=== PATIENT | female | born 1975 | race American Indian/Alaskan Native ===

== ENCOUNTER 2019-03-01 13:52 | Inpatient (IN) | payer OTHER ==
--- NOTE | 2019-03-01 14:06 | Event Note ---
ED Screening Note Date of service: 03/01/19 Time: 14:03 ED Screening Note: 43 y/o female comes in for elevated blood pressure. History of ESRD, HTN, Gout and depression. Has a slight MASTERSON. This initial assessment/diagnostic orders/clinical plan/treatment(s) is/are subject to change based on patients health status, clinical progression and re- assessment by fellow clinical providers in the ED. Further treatment and workup at subsequent clinical providers discretion. Patient/guardian urged not to elope from the ED as their condition may be serious if not clinically assessed and managed. Initial orders include:
[2019-03-01 14:40] LABS: Basophils % (Auto) 0.7 % (0.0-1.8); Eosinophils # (Auto) 0.1 K/mm3 (0.0-0.4); Eosinophils % (Auto) 2.7 % (0.0-4.3); Hematocrit 34.2 % (30.3-42.9); Hemoglobin 11.8 gm/dl (10.1-14.3); Lymphocytes # (Auto) 1.6 K/mm3 (1.2-5.4); Lymphocytes % (Auto) 37.7 % (13.4-35.0); Mean Corpuscular HGB Conc 35 % (30-34); Mean Corpuscular Volume 91 fl (79-97); Monocytes # (Auto) 0.2 K/mm3 (0.0-0.8); Monocytes % (Auto) 5.9 % (0.0-7.3); Platelet Count 224 K/mm3 (140-440); Red Blood Count 3.78 M/mm3 (3.65-5.03); Red Cell Distribution Width 12.9 % (13.2-15.2)
[2019-03-01 14:42] LABS: Bilirubin,Urine NEG (Negative); Blood,Urine NEG (Negative); Color,Urine Straw (Yellow); Urobilinogen,Urine < 2.0 mg/dL (<2.0)
[2019-03-01 14:44] LABS: Protein,Urine >2000 mg dL mg/dL (Negative)
[2019-03-01 14:53] LABS: Calcium 8.9 mg/dL (8.4-10.2)
--- NOTE | 2019-03-01 15:47 | Emergency Department Report ---
ED General Adult HPI - General Chief complaint: High BP Stated complaint: HIGH BP Time Seen by Provider: 03/01/19 15:09 Source: patient Mode of arrival: Ambulatory Limitations: No Limitations - History of Present Illness Initial comments: Patient presents to the emergency department with a chief complaint of elevated blood pressure and headache. Patient states that her headache is diffuse in nature and describes it as throbbing. Not worst headache of life. Patient is currently on 3 antihypertensive medications and sees Dr. Pearson who is her nephr ologist for her hypertension. This is blood pressure arrival today was 245/150 and repeat blood pressure by me was 250/145. -: Gradual Location: head Radiation: non-radiation Severity scale (0 -10): 3 Quality: other (throbbing) Consistency: constant Improves with: none Worsens with: none Associated Symptoms: denies other symptoms Treatments Prior to Arrival: none - Related Data Home Medications Medication Instructions Recorded Confirmed Last Taken Allopurinol [Zyloprim] 100 mg PO QDAY 03/01/19 03/01/19 Unknown Atenolol [Tenormin] 50 mg PO DAILY 03/01/19 03/01/19 03/01/19 Colchicine 0.6 mg PO DAILY PRN 03/01/19 03/01/19 Unknown Doxazosin [Cardura] 4 mg PO BID 03/01/19 03/01/19 Unknown Ergocalciferol [Vitamin D2] 1 cap PO QWEEK 03/01/19 03/01/19 02/21/19 FLUoxetine HCL [FLUoxetine] 20 mg PO QDAY 03/01/19 03/01/19 Unknown Losartan [Cozaar] 100 mg PO QDAY 03/01/19 03/01/19 03/01/19 Allergies Allergy/AdvReac Type Severity Reaction Status Date / Time No Known Allergies Allergy Verified 03/01/19 13:59 ED Review of Systems ROS: Stated complaint: HIGH BP Other details as noted in HPI Comment: All other systems reviewed and negative Constitutional: denies: chills, fever Eyes: denies: eye pain, eye discharge, vision change ENT: denies: ear pain, throat pain Respiratory: denies: cough, shortness of breath, wheezing Cardiovascular: denies: chest pain, palpitations Endocrine: no symptoms reported Gastrointestinal: denies: abdominal pain, nausea, diarrhea Genitourinary: denies: urgency, dysuria, discharge Musculoskeletal: denies: back pain, joint swelling, arthralgia Skin: denies: rash, lesions Neurological: denies: headache, weakness, paresthesias Psychiatric: denies: anxiety, depression Hematological/Lymphatic: denies: easy bleeding, easy bruising ED Past Medical Hx - Past Medical History Previous Medical History?: Yes Hx Hypertension: Yes Hx Psychiatric Treatment: Yes (depression) Additional medical history: gout - Surgical History Additional Surgical History: hysterectomy - Social History Smoking Status: Never Smoker Substance Use Type: None - Medications Home Medications: Home Medications Medication Instructions Recorded Confirmed Last Taken Type Allopurinol [Zyloprim] 100 mg PO QDAY 03/01/19 03/01/19 Unknown History Atenolol [Tenormin] 50 mg PO DAILY 03/01/19 03/01/19 03/01/19 History Colchicine 0.6 mg PO DAILY PRN 03/01/19 03/01/19 Unknown History Doxazosin [Cardura] 4 mg PO BID 03/01/19 03/01/19 Unknown History Ergocalciferol [Vitamin D2] 1 cap PO QWEEK 03/01/19 03/01/19 02/21/19 History FLUoxetine HCL [FLUoxetine] 20 mg PO QDAY 03/01/19 03/01/19 Unknown History Losartan [Cozaar] 100 mg PO QDAY 03/01/19 03/01/19 03/01/19 History ED Physical Exam - General Limitations: No Limitations General appearance: alert, in no apparent distress - Head Head exam: Present: atraumatic, normocephalic - Eye Eye exam: Present: normal appearance, PERRL, EOMI - ENT ENT exam: Present: mucous membranes moist - Neck Neck exam: Present: normal inspection - Respiratory Respiratory exam: Present: normal lung sounds bilaterally. Absent: respiratory distress - Cardiovascular Cardiovascular Exam: Present: regular rate, normal rhythm. Absent: systolic murmur, diastolic murmur, rubs, gallop - GI/Abdominal GI/Abdominal exam: Present: soft, normal bowel sounds - Extremities Exam Extremities exam: Present: normal inspection - Back Exam Back exam: Present: normal inspection - Neurological Exam Neurological exam: Present: alert, oriented X3, CN II-XII intact. Absent: motor sensory deficit - Psychiatric Psychiatric exam: Present: normal affect, normal mood - Skin Skin exam: Present: warm, dry, intact, normal color. Absent: rash ED Course Vital Signs 03/01/19 03/01/19 03/01/19 14:02 15:56 16:02 Temperature 98.1 F 98.4 F Pulse Rate 65 55 L Respiratory 18 11 L 11 L Rate Blood Pressure 245/150 Blood Pressure 253/145 [Left] O2 Sat by Pulse 100 100 100 Oximetry ED Medical Decision Making - Lab Data Result diagrams: 03/01/19 14:17 03/01/19 14:17 Lab Results 03/01/19 03/01/19 03/01/19 Range/Units 14:15 14:17 14:17 WBC 4.2 L (4.5-11.0) K/mm3 RBC 3.78 (3.65-5.03) M/mm3 Hgb 11.8 (10.1-14.3) gm/dl Hct 34.2 (30.3-42.9) % MCV 91 (79-97) fl MCH 31 (28-32) pg MCHC 35 H (30-34) % RDW 12.9 L (13.2-15.2) % Plt Count 224 (140-440) K/mm3 Lymph % (Auto) 37.7 H (13.4-35.0) % [place] % (Auto) 5.9 (0.0-7.3) % Eos % (Auto) 2.7 (0.0-4.3) % Baso % (Auto) 0.7 (0.0-1.8) % Lymph # 1.6 (1.2-5.4) K/mm3 [place] # 0.2 (0.0-0.8) K/mm3 Eos # 0.1 (0.0-0.4) K/mm3 Baso # 0.0 (0.0-0.1) K/mm3 Seg Neutrophils % 53.0 (40.0-70.0) % Seg Neutrophils # 2.2 (1.8-7.7) K/mm3 Sodium 137 (137-145) mmol/L Potassium 4.3 (3.6-5.0) mmol/L Chloride 103.0 (98-107) mmol/L Carbon Dioxide 24 (22-30) mmol/L Anion Gap 14 mmol/L BUN 27 H (7-17) mg/dL Creatinine 3.3 H (0.7-1.2) mg/dL Estimated GFR 15 ml/min BUN/Creatinine Ratio 8 % Glucose 81 (65-100) mg/dL Calcium 8.9 (8.4-10.2) mg/dL Total Bilirubin 0.40 (0.1-1.2) mg/dL AST 18 (5-40) units/L ALT 11 (7-56) units/L Alkaline Phosphatase 58 (35-129) units/L Total Protein 7.5 (6.3-8.2) g/dL Albumin 4.0 (3.9-5) g/dL Albumin/Globulin Ratio 1.1 % Urine Color Straw (Yellow) Urine Turbidity Clear (Clear) Urine pH 7.0 (5.0-7.0) Ur Specific [place] 1.011 (1.003-1.030) Urine Protein >2000 mg dl (Negative) mg/dL Urine Glucose (UA) Neg (Negative) mg/dL Urine Ketones Neg (Negative) mg/dL Urine Blood Neg (Negative) Urine Nitrite Neg (Negative) Urine Bilirubin Neg (Negative) Urine Urobilinogen < 2.0 (<2.0) mg/dL Ur Leukocyte Esterase Neg (Negative) Urine WBC (Auto) 3.0 (0.0-6.0) /HPF Urine RBC (Auto) 3.0 (0.0-6.0) /HPF U Epithel Cells (Auto) 4.0 (0-13.0) /HPF - Radiology Data Radiology results: report reviewed - Medical Decision Making Placed on Cardene IV drip Critical Care Time: Yes Critical care time in (mins) excluding proc time.: 35 Critical care attestation.: If time is entered above; I have spent that time in minutes in the direct care of this critically ill patient, excluding procedure time. ED Disposition Clinical Impression: Hypertensive urgency Disposition: DC-09 OP ADMIT IP TO THIS HOSP Is pt being admited?: Yes Does the pt Need Aspirin: Yes Condition: Fair Time of Disposition: 17:22
[2019-03-01] MEDS ORDERED: CARDENE 50 MG in NACL 0.9% 250ML 230 ML IV SCH (16:00)
--- NOTE | 2019-03-01 16:26 | Cat Scan Report ---
CT HEAD WITHOUT CONTRAST INDICATION : headache. TECHNIQUE: Axial imaging performed from the skull apex through the skull base without the use of con trast. All CT scans at this location are performed using CT dose reduction for ALARA by means of aut omated exposure control. COMPARISON: None FINDINGS: Parenchyma: Normal. No abnormal density. Ventricles: Ventricles are normal in size and appear symmetric. Soft tissues: Soft tissues including the orbits appear normal. Bones: No acute osseous abnormality. Sinuses: Sinuses and mastoid air cells are clear. IMPRESSION: No acute abnormality. No evidence of acute infarct or hemorrhage. Signer Name: Vinny Ospina MD Signed: 03/01/2019 4:22 PM Workstation Name: [id number]
[2019-03-01] MEDS ORDERED: BABY ASPIRIN PO ONE (17:22)
--- NOTE | 2019-03-01 17:22 | History and Physical Report ---
History of Present Illness Chief complaint: My head hurts, and my blood pressure is high. History of present illness: 43 YO Female with HTN, Depression, Gout, and multiple life stressors presents to ED for evaluation. Pt states that she has experienced a severe headache over the past 2 days with persistent symptoms over the same time frame. Pt states that her pain ranges from 3-6/10, but is currently it a level of 3. Pt also reports having high blood pressure at home. Pt transported to [facility] via private vehicle. Pt seen and evaluated in ED and found to have Acute Kidney Injury as well as Hypertensive Emergency with blood pressure of 255/145. Pt denies fever, chills, CP, Palpitations, NVD, Trauma, BRBPR, Unintentional weight loss, night sweats, vision loss, or recent ill contacts. Pt admitted to [facility] and placed on cardene drip. No prior admission for review. All listed medication reconciled at time of admission. Past History Past Medical History: hypertension, other (gout,depression) Past Surgical History: hysterectomy Social history: single. denies: smoking, alcohol abuse, prescription drug abuse Family history: hypertension Medications and Allergies Allergies Allergy/AdvReac Type Severity Reaction Status Date / Time No Known Allergies Allergy Verified 03/01/19 13:59 Home Medications Medication Instructions Recorded Confirmed Last Taken Type Allopurinol [Zyloprim] 100 mg PO QDAY 03/01/19 03/01/19 Unknown History Atenolol [Tenormin] 50 mg PO DAILY 03/01/19 03/01/19 03/01/19 History Colchicine 0.6 mg PO DAILY PRN 03/01/19 03/01/19 Unknown History Doxazosin [Cardura] 4 mg PO BID 03/01/19 03/01/19 Unknown History Ergocalciferol [Vitamin D2] 1 cap PO QWEEK 03/01/19 03/01/19 02/21/19 History FLUoxetine HCL [FLUoxetine] 20 mg PO QDAY 03/01/19 03/01/19 Unknown History Losartan [Cozaar] 100 mg PO QDAY 03/01/19 03/01/19 03/01/19 History Active Meds: Active Medications Nicardipine HCl 50 mg/ Sodium (Chloride) 250 mls @ 25 mls/hr IV TITR VICKY; Protocol Last Titration: 03/01/19 17:18 Dose: 7.5 mg/hr, 37.5 mls/hr Documented by: Review of Systems Constitutional: no weight loss, no weight gain, no fever, no chills Ears, nose, mouth and throat: no ear pain, no ear discharge, no tinnitis, no nasal congestion, no nasal discharge, no sinus pressure Cardiovascular: no chest pain, no orthopnea, no palpitations, no edema, no syncope, no shortness of breath Respiratory: no cough, no cough with sputum, no excessive sputum, no hemoptysis, no shortness of breath Gastrointestinal: no abdominal pain, no nausea, no vomiting, no diarrhea Genitourinary Female: no pelvic pain, no flank pain, no menorrhagia, no dysuria Rectal: no pain, no bleeding Musculoskeletal: no neck pain, no shooting arm pain, no arm numbness/tingling, no low back pain, no shooting leg pain, no leg numbness/tingling Integumentary: no rash, no pruritis, no redness, no sores, no jaundice Neurological: no paralysis, no weakness, no parathesias, no numbness, no tingling, no seizures, no syncope, no tremors Psychiatric: no anxiety, no memory loss, no change in sleep habits, no change in libido, no suicidal ideation, no disorientation Endocrine: no cold intolerance, no heat intolerance, no excessive thirst, no polydipsia, no polyuria, no nocturia, no flushing Hematologic/Lymphatic: no easy bruising, no lymphedema Allergic/Immunologic: no urticaria, no allergic rhinitis, no anaphylaxis Exam - Constitutional Vitals: Temp Pulse Resp BP Pulse Ox 98.4 F 55 L 11 L 253/145 100 03/01/19 15:56 03/01/19 15:56 03/01/19 16:02 03/01/19 15:56 03/01/19 16:02 General appearance: Present: mild distress - EENT Eyes: Present: PERRL ENT: hearing intact, clear oral mucosa - Neck Neck: Present: supple, normal ROM - Respiratory Respiratory effort: normal Respiratory: bilateral: CTA - Cardiovascular Heart Sounds: Present: S1 & S2. Absent: rub, click - Extremities Extremities: pulses symmetrical, No edema Peripheral Pulses: within normal limits - Abdominal General gastrointestinal: Present: soft, non-tender, non-distended, normal bowel sounds Female genitourinary: Present: normal - Integumentary Integumentary: Present: clear, warm, dry - Musculoskeletal Musculoskeletal: gait normal, strength equal bilaterally - Psychiatric Psychiatric: appropriate mood/affect, intact judgment & insight - Neurologic Neurologic: CNII-XII intact, moves all extremities Results - Labs CBC & Chem 7: 03/01/19 14:17 03/01/19 14:17 Labs: Abnormal lab results 03/01/19 03/01/19 Range/Units 14:17 14:17 WBC 4.2 L (4.5-11.0) K/mm3 MCHC 35 H (30-34) % RDW 12.9 L (13.2-15.2) % Lymph % (Auto) 37.7 H (13.4-35.0) % BUN 27 H (7-17) mg/dL Creatinine 3.3 H (0.7-1.2) mg/dL Assessment and Plan - Patient Problems (1) Hypertensive emergency without congestive heart failure Current Visit: Yes Status: Acute Plan to address problem: Admit to IMCU, Cardene drip, supportive care. blood pressure control, Goal BP overnight 170-190, thyroid panel, (2) SRINIVAS (acute kidney injury) Current Visit: Yes Status: Acute Plan to address problem: IVF resuscitation therapy, monitor uop q shift, BP Control, Nephrology consulted in ED. (3) Depression Current Visit: Yes Status: Acute Qualifiers: Depression Type: other depression Qualified Code(s): F32.89 - Other specified depressive episodes Plan to address problem: Continue current therapy, Pt denies HI/SI, or plan (4) Gout Current Visit: Yes Status: Acute Plan to address problem: Continue current care, supportive care. (5) DVT prophylaxis Current Visit: Yes Status: Acute Plan to address problem: SCD to BLE while in bed, supportive care. Pt is ambulatory.
[2019-03-01] MEDS ORDERED: PROVENTIL IH PRN (17:25)
[2019-03-01] MEDS ORDERED: SODIUM CHLORIDE FLUSH SYRINGE 10 ML IV PRN (17:25)
[2019-03-01] MEDS ORDERED: COLCHICINE PO PRN (17:29)
[2019-03-01] MEDS ORDERED: APRESOLINE IV PRN (21:44)
[2019-03-01] MEDS: SODIUM CHLORIDE FLUSH SYRINGE 10 ML IV SCH (22:41)
[2019-03-01] MEDS: TYLENOL PO PRN (23:50)
[2019-03-02] MEDS: CARDURA PO SCH ×3 (06:40→21:40)
[2019-03-02 07:13] LABS: Albumin 3.6 g/dL (3.9-5); Calcium 8.6 mg/dL (8.4-10.2)
[2019-03-02] MEDS: TYLENOL PO PRN (08:21)
[2019-03-02] MEDS ORDERED: NON-FORMULARY (Losartan [Cozaar] 100 MG) PO SCH (10:00)
[2019-03-02] MEDS ORDERED: NON-FORMULARY (Fluoxetine Hcl [Fluoxetine] 20 MG) PO SCH (10:00)
[2019-03-02] MEDS ORDERED: VITAMIN D2 PO SCH (10:00)
[2019-03-02] MEDS: COZAAR PO SCH (11:32)
[2019-03-02] MEDS: SODIUM CHLORIDE FLUSH SYRINGE 10 ML IV SCH ×2 (11:33→21:41)
[2019-03-02] MEDS: ZYLOPRIM PO SCH (11:33)
[2019-03-02] MEDS: PROzac PO SCH (11:33)
--- NOTE | 2019-03-02 17:37 | Consultation ---
History of Present Illness - Reason for Consult Consult date: 03/02/19 chronic renal failure, accelerated hypertension Requesting physician: MICHELE YEE - History of Present Illness This is a 43 yo AAF with past medical history of Hypertension, depression, gout, CKD stage 4, being followed by campus receptionist in [place] (Dr Pearson), who presents to [facility] ER with complaints of severe headache over the past 2 days associated with generalized weakness. In ER BP was as high as 255/145mmHg and pt was started on cardene gtt and admitted to the IMCU. labs showed elevated BUN/Cr at 27/3.3mg/dl for which renal consult is requested. Pt reports that she was diagnosed with CKD stage 4, with recent eGFR around 25mls/min. Pt denies fever, chills, CP, Palpitations, NVD, Trauma, BRBPR, Unintentional weight loss, night sweats, vision loss, or recent ill contacts. no recent NSAIDs use or IV contrast reported. Past History Past Medical History: hypertension, other (gout,depression) Past Surgical History: hysterectomy Social history: single. denies: smoking, alcohol abuse, prescription drug abuse Family history: hypertension Medications and Allergies Allergies Allergy/AdvReac Type Severity Reaction Status Date / Time No Known Allergies Allergy Verified 03/01/19 13:59 Home Medications Medication Instructions Recorded Confirmed Last Taken Type Allopurinol [Zyloprim] 100 mg PO QDAY 03/01/19 03/01/19 Unknown History Atenolol [Tenormin] 50 mg PO DAILY 03/01/19 03/01/19 03/01/19 History Colchicine 0.6 mg PO DAILY PRN 03/01/19 03/01/19 Unknown History Doxazosin [Cardura] 4 mg PO BID 03/01/19 03/01/19 Unknown History Ergocalciferol [Vitamin D2] 1 cap PO QWEEK 03/01/19 03/01/19 02/21/19 History FLUoxetine HCL [FLUoxetine] 20 mg PO QDAY 03/01/19 03/01/19 Unknown History Losartan [Cozaar] 100 mg PO QDAY 03/01/19 03/01/19 03/01/19 History Active Meds: Active Medications Acetaminophen (Tylenol) 650 mg PO Q6H PRN PRN Reason: Pain, Mild (1-3) Last Admin: 03/02/19 08:21 Dose: 650 mg Documented by: Albuterol (Proventil) 2.5 mg IH Q3HRT PRN PRN Reason: Shortness Of Breath Allopurinol (Zyloprim) 100 mg PO QDAY [facility] Last Admin: 03/02/19 11:33 Dose: 100 mg Documented by: Colchicine (Colchicine) 0.6 mg PO DAILY PRN PRN Reason: Inflammation Doxazosin Mesylate (Cardura) 4 mg PO BID [facility] Last Admin: 03/02/19 11:32 Dose: 4 mg Documented by: Ergocalciferol (Vitamin D2) 50,000 unit PO Th [facility] Last Admin: 03/02/19 11:33 Dose: 50,000 unit Documented by: Fluoxetine HCl (Prozac) 20 mg PO QDAY [facility] Last Admin: 03/02/19 11:33 Dose: 20 mg Documented by: Hydralazine HCl (Apresoline) 5 mg IV Q6H PRN PRN Reason: Hypertension Last Admin: 03/01/19 22:42 Dose: 5 mg Documented by: Nicardipine HCl 50 mg/ Sodium (Chloride) 250 mls @ 25 mls/hr IV TITR [facility]; Protocol Last Titration: 03/01/19 20:21 Dose: 0 mg/hr, 0 mls/hr Documented by: Losartan Potassium (Cozaar) 100 mg PO QDAY [facility] Last Admin: 03/02/19 11:32 Dose: 100 mg Documented by: Sodium Chloride (Sodium Chloride Flush Syringe 10 Ml) 10 ml IV BID [facility] Last Admin: 03/02/19 11:33 Dose: 10 ml Documented by: Sodium Chloride (Sodium Chloride Flush Syringe 10 Ml) 10 ml IV PRN PRN PRN Reason: LINE FLUSH Review of Systems All systems: negative Constitutional: weakness, malaise, chronic headaches Exam - Vital Signs Vital signs: Vital Signs Temp Pulse Resp BP Pulse Ox 98.1 F 65 18 245/150 100 03/01/19 14:02 03/01/19 14:02 03/01/19 14:02 03/01/19 14:02 03/01/19 14:02 - General Appearance General appearance: well-developed, well-nourished, appears stated age EENT: ATNC, PERRL, mucous membranes moist Neck: Present: neck supple Respiratory: Clear to Ascultation Heart: regular, S1S2 Gastrointestinal: Present: normoactive bowel sounds Integumentary: no rash, other (no edema ) Neurologic: no focal deficit, alert and oriented x3, strength 5/5, CN 3-12 intact Psychiatric: mood/affect appropriate, cooperative Results - Lab Results 03/01/19 14:17 03/02/19 04:16 Most recent lab results Calcium 8.6 mg/dL (8.4-10.2) 03/02/19 04:16 Assessment and Plan - Patient Problems (1) Hypertensive emergency without congestive heart failure Current Visit: Yes Status: Acute Plan to address problem: cont cardene gtt to target BP at < 180/90 mmHg for the first 24hr. resume home BP regimen incl. losartan, since eGFR appears to be close to pt's baseline. (2) Hypertensive chronic kidney disease with stage 1 through stage 4 chronic kidney disease, or unspecified chronic kidney disease Current Visit: Yes Status: Chronic Plan to address problem: cont cardene gtt, monitor BP on current meds (3) Chronic kidney disease, stage IV (severe) Current Visit: Yes Status: Chronic Plan to address problem: no acute uremic symptoms, electrolyte imbalance or acidosis. no acute indication for renal replacement therapy. pt with significant proteinuria on UA, never had renal biopsy in the past. undergoing outpatient CKD w/u. cont supportive care for CKD, avoid nephrotoxins, NSAIDs, IV contrast. Will monitor lyte/renal parameters closely and make further recommendations (4) Proteinuria Current Visit: Yes Status: Chronic Plan to address problem: cont ARB, unclear etiology of proteinuria, pt undergoing outpatient CKD/proteinuria work up.
[2019-03-02] MEDS ORDERED: APRESOLINE IV PRN ×2 (18:07→18:44)
--- NOTE | 2019-03-02 18:43 | Progress Note ---
Assessment and Plan (1) Hypertensive emergency without congestive heart failure Current Visit: Yes Status: Acute Plan to address problem: Admit to IMCU, supportive care. blood pressure control, Goal BP overnight 170- 190, thyroid panel, IV Hydralazine 10 mg q3 h prn Losartan 100 mg po qd added Coreg added (2) SRINIVAS (acute kidney injury) Current Visit: Yes Status: Acute Plan to address problem: IVF resuscitation therapy, monitor uop q shift, BP Control, Nephrology consulted in ED. (3) Depression Current Visit: Yes Status: Acute Qualifiers: Depression Type: other depression Qualified Code(s): F32.89 - Other specified depressive episodes Plan to address problem: Continue current therapy, Pt denies HI/SI, or plan (4) Gout Current Visit: Yes Status: Acute Plan to address problem: Continue current care, supportive care. (5) DVT prophylaxis Current Visit: Yes Status: Acute Plan to address problem: SCD to BLE while in bed, supportive care. Pt is ambulatory. Subjective Date of service: 03/02/19 Objective - Constitutional Vitals: Vital Signs - 12hr 03/02/19 03/02/19 03/02/19 06:45 07:00 07:15 Temperature Pulse Rate 61 77 74 Pulse Rate [ Apical] Respiratory 16 13 16 Rate Blood Pressure 194/121 183/119 190/126 O2 Sat by Pulse 99 99 98 Oximetry 03/02/19 03/02/19 03/02/19 07:30 07:45 08:00 Temperature 98.3 F Pulse Rate 70 71 69 Pulse Rate [ 72 Apical] Respiratory 16 20 14 Rate Blood Pressure 204/126 201/125 186/116 O2 Sat by Pulse 98 98 98 Oximetry 03/02/19 03/02/19 03/02/19 08:15 08:30 08:45 Temperature Pulse Rate 68 65 67 Pulse Rate [ Apical] Respiratory 17 16 14 Rate Blood Pressure 208/133 204/123 185/120 O2 Sat by Pulse 98 99 99 Oximetry 03/02/19 03/02/19 03/02/19 09:00 09:15 09:31 Temperature Pulse Rate 71 67 88 Pulse Rate [ Apical] Respiratory 12 15 13 Rate Blood Pressure 202/125 207/131 202/125 O2 Sat by Pulse 99 98 98 Oximetry 03/02/19 03/02/19 03/02/19 09:45 10:00 10:01 Temperature Pulse Rate 68 77 57 L Pulse Rate [ Apical] Respiratory 15 14 Rate Blood Pressure 202/125 206/116 O2 Sat by Pulse 99 98 Oximetry 03/02/19 03/02/19 03/02/19 10:15 10:31 10:45 Temperature Pulse Rate 58 L 66 65 Pulse Rate [ Apical] Respiratory 13 17 12 Rate Blood Pressure 206/116 187/102 187/102 O2 Sat by Pulse 98 99 99 Oximetry 03/02/19 03/02/19 03/02/19 11:00 11:15 11:28 Temperature Pulse Rate 65 65 Pulse Rate [ Apical] Respiratory 14 15 Rate Blood Pressure 156/93 147/95 O2 Sat by Pulse 99 99 100 Oximetry 03/02/19 03/02/19 03/02/19 11:30 11:32 12:00 Temperature 97.4 F L Pulse Rate 71 72 Pulse Rate [ 79 Apical] Respiratory 11 L 14 Rate Blood Pressure 163/106 163/106 O2 Sat by Pulse 100 99 Oximetry 03/02/19 03/02/19 03/02/19 12:01 13:00 14:00 Temperature Pulse Rate 56 L 68 73 Pulse Rate [ Apical] Respiratory 14 12 17 Rate Blood Pressure 185/104 187/118 190/105 O2 Sat by Pulse 100 97 100 Oximetry 03/02/19 03/02/19 03/02/19 15:00 16:00 17:00 Temperature Pulse Rate 64 63 64 Pulse Rate [ Apical] Respiratory 14 14 13 Rate Blood Pressure 208/126 210/128 214/123 O2 Sat by Pulse 98 98 99 Oximetry 03/02/19 18:20 Temperature Pulse Rate 71 Pulse Rate [ Apical] Respiratory Rate Blood Pressure 211/121 O2 Sat by Pulse Oximetry General appearance: Present: no acute distress, well-nourished - EENT Eyes: PERRL, EOM intact ENT: hearing intact, clear oral mucosa Ears: bilateral: normal - Neck Neck: supple, normal ROM - Respiratory Respiratory effort: normal Respiratory: bilateral: CTA - Breasts Breasts: normal - Cardiovascular Rhythm: regular Heart Sounds: Present: S1 & S2. Absent: gallop, rub Extremities: pulses intact, No edema, normal color, Full ROM - Gastrointestinal General gastrointestinal: Present: soft, non-tender, non-distended, normal bowel sounds - Genitourinary Female genitourinary: normal - Integumentary Integumentary: clear, warm, dry - Musculoskeletal Musculoskeletal: 1, strength equal bilaterally - Neurologic Neurologic: moves all extremities - Psychiatric Psychiatric: memory intact, appropriate mood/affect, intact judgment & insight - Labs CBC & Chem 7: 03/01/19 14:17 03/02/19 04:16 Labs: Abnormal lab results 03/02/19 Range/Units 04:16 Carbon Dioxide 20 L (22-30) mmol/L BUN 26 H (7-17) mg/dL Creatinine 2.8 H (0.7-1.2) mg/dL Albumin 3.6 L (3.9-5) g/dL
[2019-03-02] MEDS ORDERED: NORVASC PO SCH (19:00)
[2019-03-02] MEDS: PERCOCET 5/325 PO PRN (20:34)
[2019-03-02] MEDS: COREG PO SCH (21:39)
[2019-03-03 06:04] LABS: Basophils % (Auto) 0.7 % (0.0-1.8); Eosinophils # (Auto) 0.1 K/mm3 (0.0-0.4); Eosinophils % (Auto) 1.5 % (0.0-4.3); Hematocrit 34.1 % (30.3-42.9); Hemoglobin 11.6 gm/dl (10.1-14.3); Lymphocytes # (Auto) 1.5 K/mm3 (1.2-5.4); Lymphocytes % (Auto) 34.3 % (13.4-35.0); Mean Corpuscular HGB Conc 34 % (30-34); Mean Corpuscular Volume 91 fl (79-97); Monocytes # (Auto) 0.2 K/mm3 (0.0-0.8); Monocytes % (Auto) 4.6 % (0.0-7.3); Platelet Count 208 K/mm3 (140-440); Red Blood Count 3.74 M/mm3 (3.65-5.03)
[2019-03-03 06:21] LABS: Calcium 8.9 mg/dL (8.4-10.2)
[2019-03-03 07:42] LABS: Creatinine,Urine 245.7 mg/dL (0.1-20.0)
[2019-03-03] MEDS: CARDURA PO SCH ×2 (09:56→22:01)
[2019-03-03] MEDS: COREG PO SCH ×2 (09:56→21:56)
[2019-03-03] MEDS: ZYLOPRIM PO SCH (09:57)
[2019-03-03] MEDS: PROzac PO SCH (09:57)
[2019-03-03] MEDS: COZAAR PO SCH (09:57)
[2019-03-03] MEDS: SODIUM CHLORIDE FLUSH SYRINGE 10 ML IV SCH ×2 (09:57→22:02)
[2019-03-03] MEDS: PERCOCET 5/325 PO PRN (09:58)
--- NOTE | 2019-03-03 11:17 | Progress Note ---
Assessment and Plan - Patient Problems (1) Hypertensive emergency without congestive heart failure Current Visit: Yes Status: Acute Plan to address problem: cont cardene gtt to target BP at < 180/90 mmHg for the first 24hr, home BP regimen resumed. added po hydralazine 25mg po tid. (2) Hypertensive chronic kidney disease with stage 1 through stage 4 chronic kidney disease, or unspecified chronic kidney disease Current Visit: Yes Status: Chronic Plan to address problem: cont cardene gtt, monitor BP on current meds (3) Chronic kidney disease, stage IV (severe) Current Visit: Yes Status: Chronic Plan to address problem: no acute uremic symptoms, electrolyte imbalance or acidosis. no acute indication for renal replacement therapy. pt with significant proteinuria on UA, never had renal biopsy in the past. undergoing outpatient CKD w/u. cont supportive care for CKD, avoid nephrotoxins, NSAIDs, IV contrast. Will monitor lyte/renal parameters closely and make further recommendations (4) Proteinuria Current Visit: Yes Status: Chronic Plan to address problem: cont ARB, unclear etiology of proteinuria, pt undergoing outpatient CKD/proteinuria work up. Subjective Date of service: 03/03/19 Principal diagnosis: CKD, hypertensive emergency Interval history: Pt awake, alert, denies CP, SOB, palpitations, headaches, dysuria Objective - Vital Signs Vital signs: Vital Signs - 12hr 03/03/19 03/03/19 03/03/19 00:00 00:04 01:00 Temperature 98.3 F Pulse Rate 76 72 Pulse Rate [ 75 Apical] Respiratory 13 14 Rate Blood Pressure 125/84 115/70 O2 Sat by Pulse 98 98 Oximetry 03/03/19 03/03/19 03/03/19 02:00 02:15 03:00 Temperature Pulse Rate 70 78 78 Pulse Rate [ Apical] Respiratory 15 18 Rate Blood Pressure 103/64 152/103 O2 Sat by Pulse 98 98 Oximetry 03/03/19 03/03/19 03/03/19 04:00 04:08 05:00 Temperature 98.7 F Pulse Rate 71 64 Pulse Rate [ 70 Apical] Respiratory 17 16 Rate Blood Pressure 157/102 134/81 O2 Sat by Pulse 98 98 Oximetry 03/03/19 03/03/19 03/03/19 06:00 08:47 08:57 Temperature Pulse Rate 65 80 Pulse Rate [ Apical] Respiratory 17 Rate Blood Pressure 171/98 169/106 O2 Sat by Pulse 98 98 Oximetry 03/03/19 03/03/19 09:56 09:57 Temperature Pulse Rate 102 H 102 H Pulse Rate [ Apical] Respiratory Rate Blood Pressure 180/124 180/124 O2 Sat by Pulse Oximetry - General Appearance General appearance: well-developed, well-nourished, appears stated age EENT: ATNC, PERRL, mucous membranes moist Neck: no JVD Respiratory: Present: Clear to Ascultation Cardiology: regular, S1S2 Gastrointestinal: normoactive bowel sounds Integumentary: no rash, other (no edema ) Neurologic: no focal deficit, alert and oriented x3, strength 5/5, CN 3-12 intact Psychiatric: mood/affect appropriate, cooperative - Lab 03/03/19 05:20 03/03/19 05:20 Most recent lab results Calcium 8.9 mg/dL (8.4-10.2) 03/03/19 05:20 245.7 mg/dL (0.1-20.0) H 03/03/19 05:30 38 mmol/L 03/03/19 05:30 209 mg/dL (5-11.8) H 03/03/19 05:30 Medications & Allergies - Medications Allergies/Adverse Reactions: Allergies No Known Allergies Allergy (Verified 03/01/19 13:59) Home Medications: Home Medications Medication Instructions Recorded Confirmed Last Taken Type Allopurinol [Zyloprim] 100 mg PO QDAY 03/01/19 03/01/19 Unknown History Atenolol [Tenormin] 50 mg PO DAILY 03/01/19 03/01/19 03/01/19 History Colchicine 0.6 mg PO DAILY PRN 03/01/19 03/01/19 Unknown History Doxazosin [Cardura] 4 mg PO BID 03/01/19 03/01/19 Unknown History Ergocalciferol [Vitamin D2] 1 cap PO QWEEK 03/01/19 03/01/19 02/21/19 History FLUoxetine HCL [FLUoxetine] 20 mg PO QDAY 03/01/19 03/01/19 Unknown History Losartan [Cozaar] 100 mg PO QDAY 03/01/19 03/01/19 03/01/19 History Active Medications: Generic Name Dose Route Start Last Admin Trade Name Freq PRN Reason Stop Dose Admin Acetaminophen 650 mg 03/01/19 23:46 03/02/19 08:21 Tylenol PO 650 mg Q6H PRN Administration Pain, Mild (1-3) Albuterol 2.5 mg 03/01/19 17:25 Proventil IH Q3HRT PRN Shortness Of Breath Allopurinol 100 mg 03/02/19 10:00 03/03/19 09:57 Zyloprim PO 100 mg QDAY VICKY Administration Carvedilol 12.5 mg 03/02/19 18:44 03/03/19 09:56 Coreg PO 12.5 mg BID VICKY Administration Colchicine 0.6 mg 03/01/19 17:29 Colchicine PO DAILY PRN Inflammation Doxazosin Mesylate 4 mg 03/01/19 22:00 03/03/19 09:56 Cardura PO 4 mg BID VICKY Administration Ergocalciferol 50,000 unit 03/02/19 10:00 03/02/19 11:33 Vitamin D2 PO 50,000 unit Th VICKY Administration Fluoxetine HCl 20 mg 03/02/19 10:00 03/03/19 09:57 Prozac PO 20 mg QDAY VICKY Administration Hydralazine HCl 10 mg 03/02/19 18:44 03/03/19 08:57 Apresoline IV 10 mg Q3HR PRN Administration Hypertension Hydralazine HCl 25 mg 03/03/19 14:00 Apresoline PO Q8HR VICKY Losartan Potassium 100 mg 03/02/19 10:00 03/03/19 09:57 Cozaar PO 100 mg QDAY VICKY Administration Oxycodone/Acetaminophen 1 tab 03/02/19 18:57 03/03/19 09:58 Percocet 5/325 PO 1 tab Q4H PRN Administration Pain, Moderate (4-6) Sodium Chloride 10 ml 03/01/19 22:00 03/03/19 09:57 Sodium Chloride Flush Syringe 10 Ml IV 10 ml BID VICKY Administration Sodium Chloride 10 ml 03/01/19 17:25 Sodium Chloride Flush Syringe 10 Ml IV PRN PRN LINE FLUSH
--- NOTE | 2019-03-03 18:24 | Progress Note ---
Assessment and Plan (1) Hypertensive emergency without congestive heart failure Current Visit: Yes Status: Acute Plan to address problem: Admit to IMCU, supportive care. blood pressure control, Goal BP overnight 170- 190, thyroid panel, IV Hydralazine 10 mg q3 h prn Losartan 100 mg po qd added Coreg added (2) SRINIVAS (acute kidney injury) Current Visit: Yes Status: Acute Plan to address problem: IVF resuscitation therapy, monitor uop q shift, BP Control, Nephrology consulted in ED. (3) Depression Current Visit: Yes Status: Acute Qualifiers: Depression Type: other depression Qualified Code(s): F32.89 - Other specified depressive episodes Plan to address problem: Continue current therapy, Pt denies HI/SI, or plan (4) Gout Current Visit: Yes Status: Acute Plan to address problem: Continue current care, supportive care. (5) DVT prophylaxis Current Visit: Yes Status: Acute Plan to address problem: SCD to BLE while in bed, supportive care. Pt is ambulatory. Subjective Date of service: 03/03/19 Principal diagnosis: CKD, hypertensive emergency Objective - Constitutional Vitals: Vital Signs - 12hr 03/03/19 03/03/19 03/03/19 07:00 08:00 08:47 Temperature 98.4 F Pulse Rate 64 64 Respiratory 16 14 Rate Blood Pressure 210/125 169/106 O2 Sat by Pulse 99 98 98 Oximetry 03/03/19 03/03/19 03/03/19 08:57 09:00 09:56 Temperature Pulse Rate 80 79 102 H Respiratory 11 L Rate Blood Pressure 169/106 180/124 180/124 O2 Sat by Pulse 99 Oximetry 03/03/19 03/03/19 03/03/19 09:57 10:00 11:00 Temperature Pulse Rate 102 H 110 H 94 H Respiratory 17 9 L Rate Blood Pressure 180/124 138/79 148/109 O2 Sat by Pulse 98 98 Oximetry 03/03/19 03/03/19 12:00 13:00 Temperature Pulse Rate 80 85 Respiratory 13 11 L Rate Blood Pressure 128/79 125/81 O2 Sat by Pulse 97 98 Oximetry General appearance: Present: no acute distress, well-nourished - EENT Eyes: PERRL, EOM intact ENT: hearing intact, clear oral mucosa Ears: bilateral: normal - Neck Neck: supple, normal ROM - Respiratory Respiratory effort: normal Respiratory: bilateral: CTA - Breasts Breasts: normal - Cardiovascular Rhythm: regular Heart Sounds: Present: S1 & S2. Absent: gallop, rub Extremities: pulses intact, No edema, normal color, Full ROM - Gastrointestinal General gastrointestinal: Present: soft, non-tender, non-distended, normal bowel sounds - Genitourinary Female genitourinary: normal - Integumentary Integumentary: clear, warm, dry - Musculoskeletal Musculoskeletal: 1, strength equal bilaterally - Neurologic Neurologic: moves all extremities - Psychiatric Psychiatric: memory intact, appropriate mood/affect, intact judgment & insight - Labs CBC & Chem 7: 03/03/19 05:20 03/03/19 05:20 Labs: Abnormal lab results 03/03/19 03/03/19 03/03/19 Range/Units 05:20 05:20 05:30 WBC 4.3 L (4.5-11.0) K/mm3 RDW 13.0 L (13.2-15.2) % BUN 27 H (7-17) mg/dL Creatinine 3.5 H (0.7-1.2) mg/dL Glucose 102 H (65-100) mg/dL Urine Creatinine 245.7 H (0.1-20.0) mg/dL Urine Total Protein 209 H (5-11.8) mg/dL
[2019-03-03] MEDS: APRESOLINE PO SCH (22:00)
[2019-03-04] MEDS: APRESOLINE PO SCH (06:49)
[2019-03-04 10:12] VITALS: BP 195/134
== END 2019-03-04 08:47 | disposition left against medical advice (07) | DRG 683 ==
LOC: ED 13:52 → IMCU 17:25
PROVIDERS: ADMIT Internal Medicine; ATTEND Internal Medicine
DX: N17.9 Acute kidney failure, unspecified (principal); I16.1 Hypertensive emergency; N18.4 Chronic kidney disease, stage 4 (severe); F32.89 Other specified depressive episodes; I12.9 Hypertensive chronic kidney disease with stage 1 through stage 4 chronic kidney disease, or unspecified chronic kidney disease; M10.9 Gout, unspecified; Z82.49 Family history of ischemic heart disease and other diseases of the circulatory system; Z90.710 Acquired absence of both cervix and uterus; Z79.899 Other long term (current) drug therapy
CPT/HCPCS: 36415; 70450; 80048; 80053; 81001; 82570; 84156; 84300; 85025; G0378; J0360; J7050